=== PATIENT | female | born 1940 | race Caucasian/White ===

== ENCOUNTER 2023-04-08 09:36 | Emergency (ER) | payer MEDICARE, SELFPAY ==
--- NOTE | ~2023-04-08 | XR_ITS ---
XR chest 2V 04/08/2023 10:00 Indication: Chest pain and dyspnea Procedure: AP view of the chest Comparison: No prior studies for comparison. Findings: Heart size normal. No focal air space disease, pulmonary edema, pleural effusion or suspect ed pneumothorax. Moderate thoracic spondylosis with accentuated kyphosis. Impression: 1: No acute cardiopulmonary disease. Reviewed, dictated and finalized at location L. Impression: 1: No acute cardiopulmonary disease.
--- NOTE | 2023-04-08 09:37 | ECG_ITS ---
Measurements Intervals [place] Rate: 66 P: 6 ME: 223 QRS: 77 QRSD: 166 T: -20 QT: 439 QTc: 461 Interpretive Statements SINUS RHYTHM WITH FIRST DEGREE AV BLOCK LBBB NO PREVIOUS ECG AVAILABLE FOR COMPARISON Electronically Signed On 04-08-2023 13:33:07 CDT by Kortney Almanza M.D.
[2023-04-08 09:45] VITALS: BP 113/52; PULSE 64; RESP 16; TEMP 36.4; O2SAT 99
[2023-04-08 10:00] LABS: Basophils Absolute Auto 0.1 K/mm3 (0.0-0.1); Basophils Percent Auto 1.2 % (0.2-1.2); Eosinophils Absolute Auto 0.2 K/mm3 (0-0.3); Eosinophils Percent Auto 3.7 % (0-4.4); Hematocrit 34.4 % (37.0-47.0); Immature Granulocyte Absolute 0.04 K/mm3 (0.00-0.031); Immature Granulocyte Percent A 0.8 % (0-0.5); Lymphocytes Absolute Auto 1.14 K/mm3 (0.9-3.2); Lymphocytes Percent Auto 23.2 % (18.3-44.2); Mean Corpuscular Hemoglobin 32.8 pg (26-34); Mean Corpuscular Volume 102.7 fl (80-100); Monocytes Absolute Auto 0.7 K/mm3 (0.1-0.6); Monocytes Percent Auto 13.4 % (2.6-8.5); Neutrophils Absolute Auto 2.8 K/mm3 (1.3-6.7); Neutrophils Percent Auto 57.7 % (45.5-73.1); Platelet Count Result 158 k/mm3 (150-375); Red Blood Count 3.35 M/mm3 (4.2-5.4); Red Cell Distribution Width 17.3 % (11.5-14.5); White Blood Count 4.9 K/mm3 (4.5-10.0)
[2023-04-08 10:09] LABS: INR 1.1; Prothrombin Time 15.1 Seconds (11.1-14.7)
[2023-04-08 10:10] LABS: Partial Thromboplastin Time 25.3 SECONDS (22.3-36.8)
[2023-04-08 10:17] LABS: Alanine Aminotransferase 29 U/L (6-35); Albumin Level 3.9 g/dL (3.5-5.1); Alkaline Phosphatase 62 U/L (38-126); Anion Gap 6 mmol/L (8-16); Aspartate Amino Transferase 40 U/L (14-36); Blood Urea Nitrogen 30 mg/dL (7-17); Calcium 8.7 mg/dL (8.4-10.2); Carbon Dioxide 24 mmol/L (22-30); Chloride 110 mmol/L (98-107); Estimated Glomerular Filt Rate 53; Glucose 91 mg/dL (65-110); Lipase 89 U/L (23-300); Potassium 4.1 mmol/L (3.4-5.0); Sodium 140 mmol/L (137-145)
[2023-04-08 10:19] VITALS: BP 149/64; O2SAT 96
[2023-04-08 10:20] VITALS: PULSE 70; RESP 13; O2SAT 98
[2023-04-08 10:27] LABS: Troponin I < 0.012 ng/mL (0.000-0.034)
[2023-04-08 10:33] VITALS: PULSE 65; RESP 17; O2SAT 100
--- NOTE | 2023-04-08 10:39 | PC.NURSE ---
Pt states pt was at her therapist's office about 1.5 hours prior to arrival and started having left sided chest pain that radiated around to her upper back. Pt states she felt like she was breathing heavy at the office but states since has resolved. Pain is still present.
[2023-04-08] MEDS: ASPIRIN 81 MG CHEWABLE TABLET 324 MG PO (10:43)
[2023-04-08 10:45] VITALS: PULSE 64; RESP 20; O2SAT 97
[2023-04-08 10:46] VITALS: BP 146/69; PULSE 64; RESP 21; O2SAT 95
[2023-04-08] MEDS: ACETAMINOPHEN 325 MG TABLET 650 MG PO (11:05)
--- NOTE | 2023-04-08 11:10 | PC.NURSE ---
report received from Rik NETTLES at this time including history and physical and plan of care
--- NOTE | 2023-04-08 12:09 | ED.CHESTPAIN ---
HPI - Chest Pain General Chief Complaint: Chest Pain Stated Complaint: chest pain, dyspnea and back pain Time Seen by Provider: 04/08/23 10:27 History of Present Illness HPI narrative: Patient is an 82-year-old female who presents ER with chest pain. Reports it began next to her left clavicle and then spread across her central chest to the right side. She woke up with the pain and was aching. Worse with touch and movement. She then was at some psychiatric therapy when it increased. She is unsure if she was having a panic attack. Denies diaphoresis/nausea/vomiting. She felt short of breath briefly. No history of [place] or known heart disease. She does have atrial fibrillation and takes Eliquis. Related Data Allergies Allergy/AdvReac Type Severity Reaction Status Date / Time ciprofloxacin Allergy Rash Verified 04/08/23 11:03 Penicillins Allergy Other Verified 04/08/23 10:37 Review of Systems Review of Systems: All systems reviewed & are unremarkable except as noted in HPI and below Constitutional: Constitutional: Denies chills, Denies fatigue and Denies fever(s) ENT: Denies nasal congestion and Denies sore throat Cardiovascular: Cardiovascular: Reports chest pain, Denies rapid heart rate and Denies radiating jaw, neck or arm pain Respiratory: Respiratory: Denies cough, Reports dyspnea and Denies wheezing Gastrointestinal: Gastrointestinal: Denies abdominal pain, Denies nausea and Denies vomiting Musculoskeletal: Musculoskeletal: Denies arthralgias and Denies joint swelling Psychiatric: Psychiatric: Reports anxiety and Reports depression Exam Narrative: GENERAL: Well-appearing, well-nourished, and in no acute distress. HEAD: Normocephalic, atraumatic. EYES: PERRL and EOMI. ENT: Mucous membranes moist. CHEST: Clear to auscultation. No respiratory distress. Tender palpation left anterior chest wall with light palpation. HEART: Regular rate and rhythm. Normal peripheral pulses. ABDOMEN: Soft, nontender, nondistended. EXTREMITIES: Normal range of motion. No edema. Braces to bilateral ankles. SKIN: Warm, dry, no rash. NEURO: Alert and oriented x3. PSYCH: Normal mood and affect. Course Course Emergency Course: Patient resting comfortably. Pain-free after Tylenol. [place] appropriate for discharge home as troponins were negative x2. Patient does have left bundle branch block on EKG however her MyChart shows that this is old. Vital Signs Vital signs: Vital Signs Temperature 97.6 F 04/08/23 09:45 Pulse Rate 64 04/08/23 09:45 Respiratory Rate 16 04/08/23 09:45 Blood Pressure 113/52 L 04/08/23 09:45 Pulse Oximetry 99 04/08/23 09:45 Oxygen Delivery Room Air 04/08/23 09:45 Temperature 97.6 F 04/08/23 09:45 Pulse Rate 64 04/08/23 10:46 Respiratory Rate 21 H 04/08/23 10:46 Blood Pressure 146/69 H 04/08/23 10:46 Pulse Oximetry 95 04/08/23 10:46 Oxygen Delivery Room Air 04/08/23 09:45 MDM - Chest Pain Lab Data 04/08/23 09:47 04/08/23 09:47 Labs: Lab Results 04/08/23 04/08/23 Range/Units 09:47 12:45 WBC 4.9 (4.5-10.0) K/mm3 RBC 3.35 L (4.2-5.4) M/mm3 Hgb 11.0 L (12.0-15.0) g/dL Hct 34.4 L (37.0-47.0) % MCV 102.7 H (80-100) fl MCH 32.8 (26-34) pg MCHC 32.0 (32-36) g/dl RDW 17.3 H (11.5-14.5) % Plt Count 158 (150-375) k/mm3 MPV 10.0 (7.4-10.4) fl Immature Gran % (Auto) 0.8 H (0-0.5) % Neut % (Auto) 57.7 (45.5-73.1) % Lymph % (Auto) 23.2 (18.3-44.2) % [place] % (Auto) 13.4 H (2.6-8.5) % Eos % (Auto) 3.7 (0-4.4) % Baso % (Auto) 1.2 (0.2-1.2) % Lymph # (Auto) 1.14 (0.9-3.2) K/mm3 [place] # (Auto) 0.7 H (0.1-0.6) K/mm3 Eos # (Auto) 0.2 (0-0.3) K/mm3 Baso # (Auto) 0.1 (0.0-0.1) K/mm3 Abs Immat Gran (auto) 0.04 H (0.00-0.031) K/mm3 Absolute Neuts (auto) 2.8 (1.3-6.7) K/mm3 Absolute Nucleated RBC 0.0 (0.0-0.012) K/mm3 Nucleated RBC % 0.0 (0.0-0.
[2023-04-08 13:16] LABS: Troponin I < 0.012 ng/mL (0.000-0.034)
== END 2023-04-08 14:12 | disposition home or self-care (01) ==
PROVIDERS: Emergency Provider Emergency Medicine; PCP Internal Medicine
DX: R07.89 Other chest pain (principal); I48.91 Unspecified atrial fibrillation; Z79.01 Long term (current) use of anticoagulants; I44.0 Atrioventricular block, first degree; I44.7 Left bundle-branch block, unspecified
CPT/HCPCS: 36415; 71046; 80053; 83690; 84484; 85025; 85610; 85730; 93005; 99284; A9270